=== PATIENT | male | born 1935 | race Caucasian/White ===

== ENCOUNTER → 2016-12-22 | Day surgery (SDC) | payer MEDICARE, BC ==
[~2016-12-22] MED LIST: ASPI1TAB69 PO; ATOR40TA16 PO; HYDR25TA5 PO; LIDOCAINE HCL 1% PF 30 ML VIAL INFIL ONE; METO50TA PO; NEXI40CA PO; PRED1 PO; PROPOFOL 200 MG/20 ML AMP IV ONE; SODIUM CHLORIDE 0.9% 10 ML VIAL ONE; methylPREDNISolone ACETATE 80 MG/ML VIAL ONE
--- NOTE | 2016-12-24 12:19 | M6 ---
cc: ANTHONY SOLITARIO M.D. DATE: 12/22/2016 DATE OF : 1935 PROCEDURE Fluoroscopically guided L5-S1 translaminar epidural steroid injection. History and physical was completed and signed. Consent was signed. Procedure site was marked. Medications were listed and reconciled. Pain score was recorded. Allergies were noted. Time out was taken. Fluoroscopy time was recorded where applicable. Sedation was administered or directed by Dr. Solitario. The patient was given oxygen. The patient was monitored by a registered nurse. Total procedure time was greater than 15 minutes. PROCEDURE NOTE: IV was started, blood pressure cuff, pulse oximeter and EKG were applied. The patient was placed in the prone position on a Pablo table sedated with small amounts of propofol titrated to effect. Vital signs were monitored and remained stable throughout the procedure. The lumbar area was prepped with alcohol and 10% Betadine solution, draped with sterile drapes. Fluoroscopy was used to visualize the L5-S1 translaminar space. The skin was infiltrated with 1% Xylocaine using a 27 gauge needle then a three 3-1/2 inch 18-gauge Wray needle was advanced using fluoroscopic guidance and the ucag-[id number] technique into the epidural space at L5-S1 slightly to the left of the midline. There was negative aspiration for blood or any other type of fluid and the patient was given 10 mL of half percent Xylocaine, 80 mg of Depo-Medrol. Following the procedure the patient was taken to the recovery room with stable vital signs neurologically intact. W. MD PRANAY Cruz/ZAC /8:32 AM /12:16 PM
== END | disposition home or self-care (01) ==
LOC: PHSDC 06:39
PROVIDERS: ATTEND Pain Medicine Interventional Pain Medicine
DX: M54.5 Low back pain (principal); M79.605 Pain in left leg
CPT/HCPCS: 62323; 99152; J1040

== ENCOUNTER → 2017-01-31 | Day surgery (SDC) | payer MEDICARE, BC ==
[~2017-01-31] MED LIST changes: +BUPIVACAINE HCL PF 0.75% 30 ML VIAL ONE; -LIDOCAINE HCL 1% PF 30 ML VIAL INFIL ONE; -NEXI40CA PO; -SODIUM CHLORIDE 0.9% 10 ML VIAL ONE; +TRIAMCINOLONE ACETONIDE 40 MG/ML VIAL I-ARTICULR ONE; -methylPREDNISolone ACETATE 80 MG/ML VIAL ONE
--- NOTE | 2017-02-06 13:30 | M6 ---
cc: ANTHONY SOLITARIO M.D. DATE 01/31/2017 DATE OF 37 PROCEDURE Fluoroscopically guided injection bilateral lumbar facet joints (bilateral L3-4, L4-5 and L5-S1 facet joints) PROCEDURE NOTE History and physical was completed and signed. Consent was signed. Procedure site was marked. Medications were listed and reconciled. Pain score was recorded. Allergies were noted. Time out was taken. Fluoroscopy time was recorded where applicable. Sedation was administered or directed by Dr. Solitario. The patient was given oxygen. The patient was monitored by a registered nurse. Total procedure time was greater than 15 minutes. IV was started, blood pressure cuff, pulse oximeter and EKG were applied. The patient was placed in the prone position on a Pablo table, sedated with small amounts of propofol titrated to effect. Vital signs were monitored and remained stable throughout the procedure. The lumbar area was prepped with alcohol and 10% Betadine solution, draped with sterile drapes. Fluoroscopy was used in a Jw dog view to clearly visualize the bilateral lumbar facet joints at L3-4, L4-5 and L5-S1. Separate sterile 3-1/2-inch 25-gauge spinal needles were advanced into these joints under fluoroscopic guidance. There was negative aspiration for blood or any other type of fluid and at each location the patient was given 1 mL of Marcaine 0.75% which contained 10 mg of Kenalog. Following the procedure, the patient was taken to the recovery room with stable vital signs neurologically intact. WMD PRANAY Bullock/FERNY /10:00 AM /1:26 PM
== END | disposition home or self-care (01) ==
LOC: PHSDC 07:57
PROVIDERS: ATTEND Pain Medicine Interventional Pain Medicine
DX: M54.5 Low back pain (principal); M79.605 Pain in left leg; I10 Essential (primary) hypertension
CPT/HCPCS: 64493; 64494; 64495; 99152; J3301

== ENCOUNTER 2018-03-22 09:11 | Day surgery (SDC) | payer MEDICARE, BC ==
[~2018-03-22 09:11] MED LIST changes: +AMLO5TAB2 PO; -ASPI1TAB69 PO; +ASPI81TA23 PO; -BUPIVACAINE HCL PF 0.75% 30 ML VIAL ONE; -PROPOFOL 200 MG/20 ML AMP IV ONE; -TRIAMCINOLONE ACETONIDE 40 MG/ML VIAL I-ARTICULR ONE
[2018-03-22] MEDS ORDERED: ceFAZolin INJ 1,000 MG VIAL ONE (09:28)
[2018-03-22] MEDS ORDERED: CHLORHEXIDINE GLUCONATE 2 % 1 PACK (2 CLOTHS) TOPICAL SCH (09:30)
[2018-03-22] MEDS ORDERED: Hold AM Insulin & AM Hypoglycemic medications in diabetic patients PRN (09:30)
[2018-03-22] MEDS ORDERED: NO Heparin, Lovenox, Coumadin at least 12 hours prior to procedure. PRN (09:30)
[2018-03-22] MEDS ORDERED: MUPIROCIN 2% OINT 1 APPLIC/GM SYR NASAL SCH (09:30)
[2018-03-22] MEDS ORDERED: POVIDONE IODINE 5% (ANTISEPSIS KIT) 4 APPLICATIONS EACH NARE SCH (09:30)
[2018-03-22] MEDS ORDERED: ceFAZolin 2 GM PREMIX 50 ML IV SCH (09:30)
[2018-03-22] MEDS ORDERED: NS 1000 ML IV SCH (10:00)
--- NOTE | 2018-03-22 11:30 | MA ---
cc: Samm Arnold MD DATE: 03/22/2018 PROCEDURE PERFORMED: Loop recorder insertion. INDICATIONS: Atrial fibrillation detection. DESCRIPTION OF PROCEDURE: The patient was brought to the DOC Unit in the postabsorptive state. After informed consent was obtained, a [employer] LIN[employer] loop recorder was inserted subcutaneously in the left chest. The patient tolerated the procedure well without any apparent complication. Tachybrady pause and atrial fibrillation detection was enabled. The initial R-wave was 0.26 millivolts. The serial number was [id number]. Samm Arnold MD DES/LUIS FERNANDO , 11:15 AM , 11:29 AM
[2018-03-22] MEDS ORDERED: OMEGCAP PO (11:33)
[2018-03-22] MEDS ORDERED: DILT120C9 PO (11:33)
[2018-03-22] MEDS ORDERED: MULTTAB67 PO (11:33)
[2018-03-22] MEDS ORDERED: CENTCHW4 CHEW (11:33)
[2018-03-22] MEDS ORDERED: PANT40TA3 PO (11:33)
== END 2018-03-22 11:53 | disposition home or self-care (01) ==
LOC: HDOC 09:11 → HDIC 09:11 → HDOC 11:53
PROVIDERS: ATTEND Nuclear Medicine Nuclear Cardiology
DX: I48.0 Paroxysmal atrial fibrillation (principal); I11.9 Hypertensive heart disease without heart failure; I50.20 Unspecified systolic (congestive) heart failure
CPT/HCPCS: 33282; C1764; J0690; J7030

== ENCOUNTER → 2018-04-15 | Outpatient (CLI) | payer MEDICARE, BC ==
[~2018-04-15] MED LIST changes: -AMLO5TAB2 PO; -ASPI81TA23 PO; +CENTCHW4 CHEW; +DILT120C9 PO; -HYDR25TA5 PO; +MULTTAB67 PO; +OMEGCAP PO; +PANT40TA3 PO; -PRED1 PO
[2018-04-15 14:24] LABS: AUTOMATED NEUTROPHIL # 5.7 TH/MM3 (1.8-7.7); BASOPHIL # 0.1 TH/MM3 (0-0.2); BASOPHIL % 0.8 % (0.0-2.0); EOSINOPHIL # 0.2 TH/MM3 (0-0.4); EOSINOPHIL % 2.3 % (0.0-4.0); HEMATOCRIT 39.4 % (39.0-51.0); LYMPH % 15.5 % (9.0-44.0); LYMPHOCYTE # 1.2 TH/MM3 (1.0-4.8); MEAN CELL VOLUME 90.2 FL (80.0-100.0); MEAN CORPUSCULAR HEMOGLOBIN 29.7 PG (27.0-34.0); MEAN PLATELET VOLUME 6.4 FL (7.0-11.0); MONO % 10.3 % (0.0-8.0); MONOCYTE # 0.8 TH/MM3 (0-0.9); NEUT % 71.1 % (16.0-70.0); PLATELET COUNT 234 TH/MM3 (150-450); RED BLOOD COUNT 4.37 MIL/MM3 (4.50-5.90); RED CELL DISTRIBUTION WIDTH 16.7 % (11.6-17.2)
== END ==
LOC: PHPRE 12:32
PROVIDERS: ATTEND Pain Medicine Interventional Pain Medicine
DX: Z01.812 Encounter for preprocedural laboratory examination (principal); M54.16 Radiculopathy, lumbar region; M47.16 Other spondylosis with myelopathy, lumbar region; M48.07 Spinal stenosis, lumbosacral region
CPT/HCPCS: 36415; 80048; 84132; 85025

== ENCOUNTER → 2018-04-22 | Day surgery (SDC) | payer MEDICARE, BC ==
[~2018-04-22] VITALS: Ht 175.3 cm; Wt 77.5 kg
[~2018-04-22] MED LIST changes: +BUPIVACAINE/EPINEPHRINE 0.5% PF 30 ML VIAL ONE; +CHLORHEXIDINE GLUCONATE 2 % 1 PACK (2 CLOTHS) TOPICAL PRN; +LACTATED RINGER'S 1000 ML IV PRN; +METOPROLOL TARTRATE 25 MG TAB PO PRN; +POVIDONE IODINE 5% (ANTISEPSIS KIT) 4 APPLICATIONS EACH NARE PRN; +SODIUM CHLORID 0.9% 500 ML IV PRN; +ceFAZolin 1,000 MG/NS 100 ML IV SCH
[2018-04-22 14:40] VITALS: BP 116/70; PULSE 68; RESP 16; TEMP 97.5; O2SAT 99
--- NOTE | 2018-04-22 15:18 | MP ---
cc: Chloe Solitario MD DATE OF OPERATION: 04/22/2018 DATE OF : 1935 PROCEDURE: Implantation of Medtronic quad electrodes for cluneal nerve stimulation. PREPROCEDURE DIAGNOSIS: Lumbago with intractable back pain. POSTPROCEDURE DIAGNOSIS Lumbago with intractable back pain. PROCEDURE NOTE: IV was started in the holding area. The patient was given IV antibiotics. A surgical consent form was signed. The surgical site was marked. The patient was taken to the operating room and placed in the prone position, sedated and monitored by Anesthesia. The low lumbar area was infiltrated with 0.5% Marcaine containing epinephrine. An incision was made at the L5 level. Then, a tunneling device was used to tunnel a Medtronic quad electrode over the cluneal nerves both on the right and then a second one on the left. Each lead then was anchored to the underlying fascia using an anchoring device circumferentially tied with two 2-0 Ethibond sutures. Then, an incision was made in the patient's left flank. The 2 stimulating leads were tunneled from the lumbar incision to the left flank. There they were connected to distal extension wires by tightening Will screws and covering the connection with a Silastic cover secured at both ends with 2-0 Ethibond suture. Impedance was checked at the bedside and found to be appropriate throughout the entire system then a final tunnel device was used to pass the distal extension wire from the left flank incision further laterally on the left flank. Then, the left flank incision and the lumbar incision were irrigated with Betadine. Closure took place with 3-0 Monocryl in the subcuticular tissue and 3-0 nylon on the skin. Then the incisions were covered with sterile adhesive bandages and the patient was taken to the recovery room with stable vital signs. MD PRANAY Recinos/MICHELLE , 01:54 PM , 03:17 PM
== END | disposition home or self-care (01) ==
LOC: PHSDC 10:14
PROVIDERS: ATTEND Pain Medicine Interventional Pain Medicine
DX: M54.16 Radiculopathy, lumbar region (principal); M47.16 Other spondylosis with myelopathy, lumbar region; M48.07 Spinal stenosis, lumbosacral region; I10 Essential (primary) hypertension
CPT/HCPCS: 00400; 64555; C1778; J0690; J3010; J7120

== ENCOUNTER → 2018-05-02 | Day surgery (SDC) | payer MEDICARE, BC ==
[~2018-05-02] VITALS: Ht 175.3 cm; Wt 79.5 kg
[~2018-05-02] MED LIST changes: +LIDOCAINE HCL 1% PF 5 ML SYRINGE OTHER ONE; +PROPOFOL 200 MG/20 ML AMP IV ONE; +VANCOMYCIN HCL 500 MG ON-CALL/NS 100 ML IV SCH
[2018-05-02 13:00] VITALS: TEMP 97.6
--- NOTE | 2018-05-02 13:19 | MP ---
cc: Chloe Solitario MD DATE OF OPERATION: 05/02/2018 PROCEDURE: Implantation of Medtronic dual channel rechargeable pulse generator. PREOPERATIVE DIAGNOSIS: Lumbar radiculopathy with intractable pain. POSTPROCEDURE DIAGNOSIS: Lumbar radiculopathy with intractable pain. PROCEDURE NOTE: An IV was started in the holding area. The patient was given IV antibiotics. Surgical consent was signed. The surgical site was marked. The patient was taken to the operating room, given general LMA anesthesia, placed in the right lateral decubitus position. The distal extension wire in the patient's left flank was prepped with alcohol and cut with sterile scissors. Then, his abdomen and lumbar area was prepped with ChloraPrep and draped with sterile drapes. Then the left flank incision was infiltrated with 0.5% Marcaine containing epinephrine and was opened and the distal extension wire was disconnected from the stimulating lead. Then, in the left subcostal area, an incision was made and a subcutaneous pocket was created. Then, a tunneling device was used to pass distal extension wires from the abdominal incision to the left flank incision and then in the left flank they were connected to the stimulating leads by tightening Will screws and covering the connection with a Silastic cover secured at both ends with 2-0 Ethibond suture. Then, the [employer] dual channel rechargeable pulse generator was connected to the distal extension wires in the abdominal incision and the Will screw was used to tighten the connection. Then, a "dummy plug" was put in the second port and tightened with an Will screw. Impedance was checked at the bedside and found to be appropriate in all of the electrodes. Then, the incisions were irrigated with Betadine. The pulse generator was placed in the abdominal incision and anchored to the underlying fascia using 2-0 Ethibond suture. Then, the incisions were closed using 3-0 Monocryl in the subcuticular tissue and 3-0 nylon on the skin. The incisions were covered with sterile adhesive dressings, and the patient was taken to the recovery room with stable vital signs. MD PRANAY Recinos/LUIS FERNANDO , 01:02 PM , 01:18 PM
[2018-05-02 13:35] VITALS: BP 116/72; PULSE 66; RESP 16; O2SAT 96
== END | disposition home or self-care (01) ==
LOC: PHSDC 10:23
PROVIDERS: ATTEND Pain Medicine Interventional Pain Medicine
DX: M54.16 Radiculopathy, lumbar region (principal); Z79.899 Other long term (current) drug therapy
CPT/HCPCS: 00300; 64590; C1820; J0690; J3010; J3370; J7120